=== PATIENT | male | born 1985 | race American Indian/Alaskan Native ===

== ENCOUNTER 2020-09-15 12:58 | Emergency (ER) | payer SELFPAY ==
--- NOTE | 2020-09-15 13:41 | Emergency Department Report ---
ED Dizziness HPI - General Chief Complaint: High BP Stated Complaint: HYPERTENSION Time Seen by Provider: 09/15/20 13:23 Source: EMS Mode of arrival: Stretcher Limitations: No Limitations - History of Present Illness Initial Comments: 35-year-old male, history of hypertension (noncompliant with medications x5 months), presents to the ED with complaint of dizziness. Patient states he was at a friend's house smoking marijuana when he began to feel lightheaded as if he was going to pass out. Patient denies any headache, chest pain, shortness of breath. He reports some slight nausea, no vomiting. Patient states he was diagnosed with hypertension in January 2020. He states he was initially taking amlodipine but was switched to another medication which she cannot remember at this time. Patient is no longer taking any medications, states he s topped taking the medicine approximately 5 months ago. Complaint: dizziness, lightheadedness -: This afternoon Description: lightheadedness Severity: moderate Improves With: nothing Worsens With: other (looking downward) Associated Symptoms: denies: chest pain, fever/chills, shortness of breath, weakness - Related Data Previous Rx's Medication Instructions Recorded Last Taken Type amLODIPine 10 mg PO DAILY #30 tab 09/15/20 Unknown Rx Allergies Allergy/AdvReac Type Severity Reaction Status Date / Time No Known Allergies Allergy Unverified 09/15/20 13:22 ED Review of Systems ROS: Stated complaint: HYPERTENSION Other details as noted in HPI Comment: All other systems reviewed and negative Constitutional: denies: chills, fever Respiratory: denies: cough, shortness of breath Cardiovascular: denies: chest pain Gastrointestinal: nausea. denies: vomiting Neurological: denies: headache, weakness, numbness ED Past Medical Hx - Past Medical History Hx Hypertension: Yes Hx Psychiatric Treatment: Yes (anxiety) - Surgical History Past Surgical History?: No - Social History Smoking Status: Current Some Day Smoker Substance Use Type: Marijuana - Medications Home Medications: Home Medications Medication Instructions Recorded Confirmed Last Taken Type amLODIPine 10 mg PO DAILY #30 tab 09/15/20 Unknown Rx ED Physical Exam - General Limitations: No Limitations General appearance: alert, in no apparent distress - Head Head exam: Present: atraumatic, normocephalic - Eye Eye exam: Present: normal appearance, PERRL, EOMI - ENT ENT exam: Present: mucous membranes moist - Neck Neck exam: Present: normal inspection - Respiratory Respiratory exam: Present: normal lung sounds bilaterally. Absent: respiratory distress - Cardiovascular Cardiovascular Exam: Present: regular rate, normal rhythm - GI/Abdominal GI/Abdominal exam: Present: soft. Absent: distended, tenderness - Extremities Exam Extremities exam: Present: normal inspection. Absent: pedal edema, calf tenderness - Neurological Exam Neurological exam: Present: alert, oriented X3, CN II-XII intact, normal gait, other (wojcny-dj-ndjb and azzq-zx-jwcl normal bilaterally). Absent: motor sensory deficit - Psychiatric Psychiatric exam: Present: normal affect, normal mood - Skin Skin exam: Present: warm, dry, intact, normal color ED Course Vital Signs 09/15/20 09/15/20 09/15/20 13:32 13:34 13:52 Temperature 98.4 F Pulse Rate 75 77 Respiratory 15 18 9 L Rate Blood Pressure 170/120 Blood Pressure 170/120 [Left] O2 Sat by Pulse 99 99 99 Oximetry 09/15/20 09/15/20 09/15/20 14:00 14:29 14:39 Temperature Pulse Rate 86 Respiratory 13 Rate Blood Pressure 188/114 190/107 177/104 Blood Pressure [Left] O2 Sat by Pulse 99 Oximetry 09/15/20 09/15/20 09/15/20 14:59 15:19 15:39 Temperature Pulse Rate Respiratory Rate Blood Pressure 168/90 190/102 169/93 Blood Pressure [Left] O2 Sat by Pulse Oximetry 09/15/20 15:59 Temperature Pulse Rate Respiratory Rate Blood Pressure 178/113 Blood Pressure [Left] O2 Sat by Pulse Oximetry ED Medical Decision Making - Lab Data Result diagrams: 09/15/20 13:52 09/15/20 13:52 - EKG Data -: EKG Interpreted by Sd EKG shows normal: sinus rhythm, axis, intervals, QRS complexes, ST-T waves Rate: normal - EKG Data Interpretation: no acute changes - Radiology Data Radiology results: report reviewed, image reviewed - Medical Decision Making 35-year-old male presents to ED with dizziness and lightheadedness. Symptoms likely due to hypertensive dizziness. Patient has been noncompliant with his BP meds for the last 5 months. EKG is unremarkable, troponin is negative. Her labs are unremarkable. Neuro exam is normal, strength, sensation, gait is normal, xrbtgp-yy-usgn and huac-nc-eifq are all normal. BP somewhat improved with labetalol. Patient states he is feeling much better at this time. Dizzin ess has resolved. Patient will be discharged home with prescriptions. - Differential Diagnosis Intracranial abnormality, hypertensive dizziness, BPH Critical care attestation.: If time is entered above; I have spent that time in minutes in the direct care of this critically ill patient, excluding procedure time. ED Disposition Clinical Impression: Dizziness, Uncontrolled hypertension Disposition: TO HOME OR SELFCARE Is pt being admited?: No Condition: Stable Instructions: Dizziness, [id number]-[id number], Managing Your Hypertension, Hypertension (ED) Prescriptions: amLODIPine 10 mg PO DAILY #30 tab Referrals: PRIMARY CAREMD [Primary Care Provider] - 3-5 Days [facility] [Provider Group] - 3-5 Days RIA PEREZ MD [Staff Physician] - 3-5 Days Time of Disposition: 16:20
--- NOTE | 2020-09-15 14:04 | Cat Scan Report ---
CT head/brain wo con INDICATION: dizziness. TECHNIQUE: Routine CT head without contrast. All CT scans at this location are performed using CT dos e reduction for ALARA by means of automated exposure control. COMPARISON: None. FINDINGS: BRAIN / INTRACRANIAL CONTENTS: No acute hemorrhage, mass effect, midline shift, or hydrocephalus. No appreciable acute large territorial or lacunar infarct. No chronic infarct or focal atrophy. Normal b rain volume and ventricular/sulcal size for age. ORBITS: No significant abnormality of visualized orbits. SINUSES / MASTOIDS: No significant abnormality of visualized sinuses and mastoid air cells. ADDITIONAL FINDINGS: None. IMPRESSION: 1. No acute intracranial abnormality. Signer Name: Lio Raya MD Signed: 09/15/2020 2:00 PM Workstation Name: [id number]
--- NOTE | 2020-09-15 14:10 | XRay Report ---
XR chest 1V ap INDICATION / CLINICAL INFORMATION: dizziness. COMPARISON: None available. FINDINGS: SUPPORT DEVICES: None. HEART /PULMONARY VASCULATURE: No significant abnormality. LUNGS / PLEURA: No significant pulmonary or pleural abnormality. No pneumothorax. ADDITIONAL FINDINGS: No significant additional findings. IMPRESSION: 1. No acute findings. Signer Name: Phillip Gonzales MD Signed: 09/15/2020 2:06 PM Workstation Name: [id number]
[2020-09-15 14:12] LABS: Basophils % (Auto) 0.8 % (0.0-1.8); Eosinophils % (Auto) 0.2 % (0.0-4.3); Hematocrit 47.3 % (35.5-45.6); Hemoglobin 16.1 gm/dl (11.8-15.2); Lymphocytes % (Auto) 15.6 % (13.4-35.0); Mean Corpuscular HGB Conc 34 % (32-34); Mean Corpuscular Volume 86 fl (84-94); Monocytes # (Auto) 0.4 K/mm3 (0.0-0.8); Platelet Count 172 K/mm3 (140-440); Red Cell Distribution Width 13.5 % (13.2-15.2)
[2020-09-15 14:28] LABS: INR 1.05 (0.87-1.13); Partial Thromboplastin Time 27.2 Sec. (24.2-36.6)
[2020-09-15 14:32] LABS: BUN/Creatinine Ratio 14; Blood Urea Nitrogen 14 mg/dL (9-20); Calcium 8.7 mg/dL (8.4-10.2); Hemolysis Index 13
[2020-09-15 15:38] LABS: Amphetamine Screen,Urine PRESUMPTIVE NEGATIVE; Benzodiazepines Screen,Urine PRESUMPTIVE NEGATIVE; Cannabinoid Screen,Urine PRESUMPTIVE NEGATIVE; Cocaine Screen,Urine PRESUMPTIVE NEGATIVE; Methadone Screen,Urine PRESUMPTIVE NEGATIVE; Opiate Screen,Urine PRESUMPTIVE NEGATIVE
[2020-09-15 16:12] VITALS: BP 178/113
--- NOTE | 2020-09-20 17:22 | Electrocardiograph Report ---
[facility] Test Date: 2020-09-15 Test Time: 14:06:10 Pat Name: NIKKI GONSALVES Department: Room: Gender: M Trim Technician: MANJINDER : 1985 Requested By: ANKUR CASTANON Order Number: [id number] Reading MD: Svitlana Man Measurements Intervals [place] Rate: 71 P: 27 NC: 152 QRS: -6 QRSD: 93 T: 65 QT: 384 QTc: 418 Interpretive Statements Sinus rhythm Consider left ventricular hypertrophy ST elev, probable normal early repol pattern No previous ECG available for comparison Electronically Signed On 09-20-2020 17:21:47 EDT by Svitlana Man
== END 2020-09-15 16:39 | disposition home or self-care (01) ==
LOC: ED 12:58
DX: I10 Essential (primary) hypertension (principal); R42 Dizziness and giddiness; F41.9 Anxiety disorder, unspecified; F17.200 Nicotine dependence, unspecified, uncomplicated; F12.90 Cannabis use, unspecified, uncomplicated; Z79.899 Other long term (current) drug therapy
CPT/HCPCS: 36415; 70450; 71045; 80048; 80307; 84484; 85025; 85610; 85730; 93005; 96374

== ENCOUNTER 2021-04-03 03:48 | Emergency (ER) | payer SELFPAY ==
--- NOTE | 2021-04-03 04:45 | XRay Report ---
CHEST 1 VIEW 04/03/2021 4:36 AM INDICATION / CLINICAL INFORMATION: Chest pain. COMPARISON: 09/15/20. FINDINGS: SUPPORT DEVICES: None. HEART / MEDIASTINUM: The heart size and pulmonary vasculature are normal. The aorta is normal in denita omar. LUNGS / PLEURA: No significant pulmonary or pleural abnormality. No pneumothorax. ADDITIONAL FINDINGS: No significant additional findings. IMPRESSION: No acute abnormality or significant change. Signer Name: Pedro Juarez MD Signed: 04/03/2021 4:41 AM Workstation Name: [id number]
[2021-04-03] MEDS ORDERED: NITROGLYCERIN 0.4 MG TAB SUBL SL ONE (04:48)
[2021-04-03] MEDS ORDERED: NITROGLYCERIN 0.4 MG TAB SUBL SL PRN (04:50)
[2021-04-03 05:15] LABS: Basophils # (Auto) 0.1 K/mm3 (0.0-0.1); Basophils % (Auto) 0.9 % (0.0-1.8); Eosinophils # (Auto) 0.1 K/mm3 (0.0-0.4); Hematocrit 46.7 % (35.5-45.6); Hemoglobin 15.5 gm/dl (11.8-15.2); Lymphocytes # (Auto) 1.6 K/mm3 (1.2-5.4); Mean Corpuscular HGB Conc 33 % (32-34); Mean Corpuscular Volume 84 fl (84-94); Monocytes # (Auto) 0.6 K/mm3 (0.0-0.8); Monocytes % (Auto) 8.2 % (0.0-7.3); Platelet Count 190 K/mm3 (140-440); Red Blood Count 5.55 M/mm3 (3.65-5.03); Red Cell Distribution Width 13.6 % (13.2-15.2)
--- NOTE | 2021-04-03 05:30 | Event Note ---
ED Screening Note Date of service: 04/03/21 Time: 05:28 ED Screening Note: 35-year-old male, history of hypertension, noncompliant with BP meds, presents to ED for evaluation. Patient reports he woke up from his sleep and felt his heart racing. He reports associated left arm pain and dizziness, denies chest pain. Patient reports associated shortness of breath and diaphoresis. He denies any nausea or vomiting. Patient with elevated blood pressure. States he takes his blood pressure medication "sometimes." Patient denies any tobacco or drug use. This initial assessment/diagnostic orders/clinical plan/treatment(s) is/are subject to change based on patients health status, clinical progression and re- assessment by fellow clinical providers in the ED. Further treatment and workup at subsequent clinical providers discretion. Patient/guardian urged not to elope from the ED as their condition may be serious if not clinically assessed and managed. Initial orders include: CBC, CMP, troponin, EKG
[2021-04-03 05:33] LABS: BUN/Creatinine Ratio 16; Blood Urea Nitrogen 16 mg/dL (9-20); Calcium 8.8 mg/dL (8.4-10.2); Hemolysis Index 14
[2021-04-03] MEDS ORDERED: hydrALAZINE 20 MG/1 ML INJ IV ONE (06:21)
--- NOTE | 2021-04-03 06:21 | Emergency Department Report ---
ED General Adult HPI - General Chief complaint: Chest Pain Stated complaint: CHEST PAIN Time Seen by Provider: 04/03/21 05:53 Source: EMS Mode of arrival: Stretcher Limitations: No Limitations - History of Present Illness Initial comments: Patient presents with generalized weakness as well as chest pain and headache. He states that he has had intermittent symptoms for several weeks now. Patient came in today because he was having the symptoms and they seem to be worse. He reports having some chest discomfort described as an aching and heavy sensation. He reports having a headache associated with dizziness and lightheadedness. There is no vertiginous symptoms. He states that he feels weak all over. He has not noticed focal weakness. Patient states that his headache was global. He has had no diplopia. He denies shortness of breath. He states that he does feel weak when he walks. Patient states he has been in and out of the hospital for quite some time. He does not know what is going on. When this started a couple of days ago and worsened, he initially thought this was anxiety. He does have a history of anxiety, but states that this now seems different. He also states his blood pressures been out of control. Normally his blood pressure will run in the 160/90 range. That is much higher than it has been. He denies eating any salt. - Related Data Previous Rx's Medication Instructions Recorded Last Taken Type amLODIPine 10 mg PO DAILY #30 tab 09/15/20 Unknown Rx Hydralazine HCl 50 mg PO BID #60 tablet 04/03/21 Unknown Rx Nitroglycerin [Nitrostat] 0.4 mg SL .Q5MIN PRN tablet 04/03/21 Unknown Rx Allergies Allergy/AdvReac Type Severity Reaction Status Date / Time No Known Allergies Allergy Verified 04/03/21 04:06 ED Review of Systems ROS: Stated complaint: CHEST PAIN Other details as noted in HPI Comment: All other systems reviewed and negative Constitutional: denies: fever Eyes: denies: vision change ENT: denies: throat pain Respiratory: denies: cough Cardiovascular: as per HPI Endocrine: denies: unexplained weight loss Gastrointestinal: denies: abdominal pain Genitourinary: denies: dysuria Musculoskeletal: denies: back pain Skin: denies: rash Neurological: as per HPI Hematological/Lymphatic: denies: easy bruising ED Past Medical Hx - Past Medical History Hx Hypertension: Yes Hx Psychiatric Treatment: Yes (anxiety) - Family History Family history: hypertension - Social History Smoking Status: Current Some Day Smoker (We discussed tobacco cessation x3 minutes) Substance Use Type: Marijuana - Medications Home Medications: Home Medications Medication Instructions Recorded Confirmed Last Taken Type amLODIPine 10 mg PO DAILY #30 tab 09/15/20 Unknown Rx Hydralazine HCl 50 mg PO BID #60 tablet 04/03/21 Unknown Rx Nitroglycerin [Nitrostat] 0.4 mg SL .Q5MIN PRN tablet 04/03/21 Unknown Rx ED Physical Exam - General Limitations: No Limitations, Other (Pulse ox noted and normal) General appearance: alert, in no apparent distress, obese - Head Head exam: Present: atraumatic, normocephalic, normal inspection - Eye Eye exam: Present: normal appearance, EOMI. Absent: scleral icterus - ENT ENT exam: Present: normal exam, normal orophraynx, normal external ear exam - Neck Neck exam: Present: normal inspection. Absent: meningismus - Respiratory Respiratory exam: Present: normal lung sounds bilaterally. Absent: respiratory distress - Cardiovascular Cardiovascular Exam: Present: regular rate, normal rhythm. Absent: JVD - GI/Abdominal GI/Abdominal exam: Present: soft. Absent: tenderness - Extremities Exam Extremities exam: Present: normal capillary refill. Absent: calf tenderness - Back Exam Back exam: Absent: CVA tenderness (R), CVA tenderness (L) - Neurological Exam Neurological exam: Present: alert, oriented X3, CN II-XII intact, normal gait, reflexes normal, other (No pronator drift or dysdiadochokinesia). Absent: motor sensory deficit - Psychiatric Psychiatric exam: Present: normal affect, normal mood - Skin Skin exam: Present: warm, dry ED Course Vital Signs 04/03/21 04/03/21 04/03/21 04:06 04:44 05:00 Temperature 98.9 F Pulse Rate 103 H 104 H Respiratory 18 19 Rate Blood Pressure Blood Pressure 162/112 [Left] O2 Sat by Pulse 98 96 94 Oximetry 04/03/21 04/03/21 04/03/21 05:31 06:01 06:27 Temperature Pulse Rate 99 H 100 H 102 H Respiratory 22 16 Rate Blood Pressure 204/144 229/155 196/142 Blood Pressure [Left] O2 Sat by Pulse 96 97 Oximetry 04/03/21 04/03/2104/03/21 06:31 07:00 07:45 Temperature Pulse Rate 100 H 115 H Respiratory 14 16 Rate Blood Pressure 196/126 205/130 205/130 Blood Pressure [Left] O2 Sat by Pulse 97 98 99 Oximetry 04/03/21 08:01 Temperature Pulse Rate 112 H Respiratory 15 Rate Blood Pressure 175/109 Blood Pressure [Left] O2 Sat by Pulse 99 Oximetry - Reevaluation(s) Reevaluation #1: 04/03/21 06:20 IV and labs were ordered. EKG was noted. Medications ordered. Old records reviewed. Reevaluation #2: 04/03/21 08:34 Patient was discharged ED Medical Decision Making - Lab Data Result diagrams: 04/03/21 04:57 04/03/21 04:57 Rhythm strip: Sinus tachycardia without ectopy. Monitor observe 10 seconds. - EKG Data -: EKG Interpreted by Ri - EKG Data 04/03/21 06:21 0501-EKG shows normal sinus rhythm at 97. Intervals normal including a QRS of 87 and a QT corrected of 440. Patient has T wave inversion in 3 and aVF. There is no ST elevation to suggest STEMI. There is no ST depression suggestive of ischemia. There does not appear to be any change from old EKG. - Radiology Data Radiology results: report reviewed - Medical Decision Making Patient presented with multiple symptoms related to elevated blood pressure. He has uncontrolled hypertension. He does not have evidence of endorgan damage. There is no evidence of stroke. He has no evidence of STEMI or NSTEMI. There is no troponin leak. He does not have renal damage or injury. At this time, patient's blood pressure was controlled. He states that he has not been eating salt however he also states that he has been taking his medication. Etiology for the uncontrolled hypertension is not known. We did have a long discussion about this. As there is no evidence of endorgan damage, I do not believe requires admission. He was treated aggressively. He was given blood pressure medication to use in addition to his home medication. He is referred to his PCP for recheck. We did discuss strict follow-up precautions and return pr ecautions. Critical Care Time: No Critical care attestation.: If time is entered above; I have spent that time in minutes in the direct care of this critically ill patient, excluding procedure time. ED Disposition Clinical Impression: Uncontrolled hypertension, General weakness Acute headache Qualifiers: Headache type: unspecified Intractability: not intractable Qualified Code(s): R51.9 - Headache, unspecified Disposition: 01 HOME / SELF CARE / HOMELESS Is pt being admited?: No Condition: Stable Instructions: General Headache Without Cause, Weakness, Ckby-[id number], Preventing Hypertension, Hypertension (ED) Additional Instructions: Drink plenty water. Continue to avoid salt. Return for problems. Follow-up with your regular doctor for recheck and further management. Take your blood pressure medication. Prescriptions: Hydralazine HCl 50 mg PO BID #60 tablet Referrals: PRIMARY CAREMD [Primary Care Provider] - 3-5 Days RODRIGUEZ VASQUEZ MD [Staff Physician] - 3-5 Days
--- NOTE | 2021-04-03 07:35 | Cat Scan Report ---
CT HEAD WITHOUT CONTRAST INDICATION / CLINICAL INFORMATION: Headache with dizziness and uncontrolled hypertension. TECHNIQUE: All CT scans at this location are performed using CT dose reduction for ALARA by means of automated exposure control. COMPARISON: 09/15/20. FINDINGS: HEMORRHAGE: None. EXTRA-AXIAL SPACES: Normal in size and morphology for the patient's age. VENTRICULAR SYSTEM: Normal in size and morphology for the patient's age. CEREBRAL PARENCHYMA: No significant abnormality. No acute territorial infarct. MIDLINE SHIFT / HERNIATION: None. CEREBELLUM / BRAINSTEM: No significant abnormality. ORBITS: Normal as visualized. SOFT TISSUES: No significant abnormality. SKULL: No significant abnormality. PARANASAL SINUSES / MASTOID AIR CELLS: Normal as visualized. ADDITIONAL FINDINGS: None. IMPRESSION: No acute intracranial abnormality. Signer Name: Pedro Juarez MD Signed: 04/03/2021 7:31 AM Workstation Name: [id number]
[2021-04-03 08:22] VITALS: BP 175/109
--- NOTE | 2021-04-04 11:09 | Electrocardiograph Report ---
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
== END 2021-04-03 08:35 | disposition home or self-care (01) ==
LOC: ED 03:48
DX: I10 Essential (primary) hypertension (principal); F41.9 Anxiety disorder, unspecified; F17.200 Nicotine dependence, unspecified, uncomplicated; F12.10 Cannabis abuse, uncomplicated; R53.1 Weakness; R51.9 Headache, unspecified
CPT/HCPCS: 36415; 70450; 71045; 80048; 84484; 85025; 93005; 96374; 99285; J0360